=== PATIENT | male | born 1975 | race American Indian/Alaskan Native ===

== ENCOUNTER 2017-08-03 19:49 | Emergency (ER) | payer BC ==
[2017-08-03] MEDS ORDERED: NACL 0.9% 1000 ML 1,000 ML IV ONE ×2 (20:54→22:38)
--- NOTE | 2017-08-03 20:55 | Emergency Department Report ---
ED General Adult HPI - General Chief complaint: Hyperglycemia Stated complaint: HBP Time Seen by Provider: 08/03/17 20:46 Source: patient, EMS Mode of arrival: Stretcher Limitations: No Limitations - History of Present Illness Initial comments: 41-year-old male history of diabetes here with loss of insulin. Patient states he ran earlier today. His blood sugars been running high. He has had increased thirst and increased urination. Denies fevers chills nausea vomiting. Otherwise feels well. -: unknown Consistency: intermittent Worsens with: none Treatments Prior to Arrival: none, other - Related Data Home Medications Medication Instructions Recorded Confirmed Last Taken Metformin HCl [Glucophage] 1,000 mg PO BID 03/05/17 03/05/17 Unknown Previous Rx's Medication Instructions Recorded Last Taken Type Insulin Glargine,Hum.rec.anlog 20 units SC QDAY #1 insuln.pen 03/06/17 Unknown Rx [Toujeo Solostar] Allergies Allergy/AdvReac Type Severity Reaction Status Date / Time No Known Allergies Allergy Unverified 03/05/17 07:50 ED Review of Systems ROS: Stated complaint: HBP Other details as noted in HPI Comment: All other systems reviewed and negative Eyes: denies: vision change ENT: denies: ear pain, throat pain Cardiovascular: denies: chest pain, palpitations Endocrine: no symptoms reported Gastrointestinal: denies: abdominal pain, nausea, diarrhea Genitourinary: frequency. denies: urgency, dysuria Musculoskeletal: denies: back pain, joint swelling, arthralgia Skin: denies: rash, lesions Neurological: denies: headache, weakness, paresthesias Psychiatric: denies: anxiety, depression ED Past Medical Hx - Past Medical History Previous Medical History?: Yes Hx Hypertension: Yes Hx Congestive Heart Failure: No Hx Diabetes: Yes Hx Asthma: No Hx COPD: No Additional medical history: GOUT. PANCREATITIS - Family History Family history: diabetes - Social History Smoking Status: Current Every Day Smoker - Medications Home Medications: Home Medications Medication Instructions Recorded Confirmed Last Taken Type Metformin HCl [Glucophage] 1,000 mg PO BID 03/05/17 03/05/17 Unknown History Insulin Glargine,Hum.rec.anlog 20 units SC QDAY #1 insuln.pen 03/06/17 Unknown Rx [Toujeo Solostar] ED Physical Exam - General Limitations: No Limitations General appearance: alert, in no apparent distress - Head Head exam: Present: atraumatic, normocephalic - Eye Eye exam: Present: normal appearance. Absent: scleral icterus, conjunctival injection - ENT ENT exam: Present: mucous membranes moist - Respiratory Respiratory exam: Present: normal lung sounds bilaterally. Absent: respiratory distress, wheezes - Cardiovascular Cardiovascular Exam: Present: regular rate, normal rhythm, normal heart sounds. Absent: systolic murmur, diastolic murmur, rubs, gallop - GI/Abdominal GI/Abdominal exam: Present: soft, normal bowel sounds. Absent: distended, tenderness, guarding - Rectal Rectal exam: Present: deferred - Extremities Exam Extremities exam: Present: normal inspection - Back Exam Back exam: Present: normal inspection - Neurological Exam Neurological exam: Present: alert, oriented X3 - Psychiatric Psychiatric exam: Present: normal affect, normal mood - Skin Skin exam: Present: warm, dry, intact, normal color. Absent: rash ED Course Vital Signs 08/03/17 08/03/17 08/04/17 20:04 20:42 00:15 Temperature 98.0 F 98.0 F Pulse Rate 87 78 Respiratory 20 2 L 20 Rate Blood Pressure 144/102 Blood Pressure 131/86 [Right] O2 Sat by Pulse 97 97 98 Oximetry ED Medical Decision Making - Lab Data Result diagrams: 08/03/17 20:13 08/03/17 23:45 Laboratory Results - last 24 hr 08/03/17 08/03/17 08/03/17 20:08 20:13 20:13 WBC 4.4 L RBC 5.90 H Hgb 17.2 H Hct 50.9 H MCV 86 MCH 29 MCHC 34 RDW 12.9 L Plt Count 156 Lymph % (Auto) 29.6 [place] % (Auto) 6.5 Eos % (Auto) 0.1 Baso % (Auto) 0.9 Lymph # 1.3 [place] # 0.3 Eos # 0.0 Baso # 0.0 Seg Neutrophils % 62.9 Seg Neutrophils # 2.7 VBG pH Sodium 132 L Potassium 4.9 Chloride 94.6 L Carbon Dioxide 24 Anion Gap 18 BUN 15 Creatinine 0.8 Estimated GFR > 60 BUN/Creatinine Ratio 19 Glucose 638 H* POC Glucose Calcium 8.8 Urine Color Straw Urine Turbidity Clear Urine pH 6.0 Ur Specific [place] 1.029 Urine Protein <15 mg/dl Urine Glucose (UA) >=500 Urine Ketones Neg Urine Blood Neg Urine Nitrite Neg Urine Bilirubin Neg Urine Urobilinogen < 2.0 Ur Leukocyte Esterase Neg Urine WBC (Auto) 0.0 Urine RBC (Auto) < 1.0 08/03/17 08/03/17 08/03/17 20:13 20:24 23:45 WBC RBC Hgb Hct MCV MCH MCHC RDW Plt Count Lymph % (Auto) [place] % (Auto) Eos % (Auto) Baso % (Auto) Lymph # [place] # Eos # Baso # Seg Neutrophils % Seg Neutrophils # VBG pH 7.361 Sodium Potassium Chloride Carbon Dioxide Anion Gap BUN Creatinine Estimated GFR BUN/Creatinine Ratio Glucose 221 H POC Glucose > 500 H Calcium Urine Color Urine Turbidity Urine pH Ur Specific [place] Urine Protein Urine Glucose (UA) Urine Ketones Urine Blood Urine Nitrite Urine Bilirubin Urine Urobilinogen Ur Leukocyte Esterase Urine WBC (Auto) Urine RBC (Auto) - Medical Decision Making 41-year-old male with known history of diabetes has not taken his meds for approximately 24 hours for blood sugar greater than 700. Given IV fluids 2 L and 10 units of insulin and his blood sugar decreased into the 200s. Plan discharge the patient home. He is no evidence of DKA. 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 Portions of this chart were dictated with dictation software. There may be dictation errors contained within this note. Critical care attestation.: If time is entered above; I have spent that time in minutes in the direct care of this critically ill patient, excluding procedure time. ED Disposition Clinical Impression: Hyperglycemia Disposition: DC-01 TO HOME OR SELFCARE Is pt being admited?: No Condition: Stable Instructions: Diabetic Hyperglycemia (ED) Referrals: PRIMARY CARE, [Primary Care Provider] - 3-5 Days
[2017-08-03 21:09] LABS: Bilirubin,Urine NEG (Negative); Blood,Urine NEG (Negative); Ketones,Urine NEG (Negative); Leukocyte Esterase,Urine NEG (Negative); Nitrite,Urine NEG (Negative); Protein,Urine <15 mg/dL mg/dL (Negative); RBC,Urine < 1.0 /HPF (0.0-6.0); Urobilinogen,Urine < 2.0 mg/dL (<2.0)
[2017-08-03 21:24] LABS: Basophils % (Auto) 0.9 % (0.0-1.8); Eosinophils % (Auto) 0.1 % (0.0-4.3); Hematocrit 50.9 % (35.5-45.6); Hemoglobin 17.2 gm/dl (11.8-15.2); Mean Corpuscular HGB Conc 34 % (32-34); Mean Corpuscular Hemoglobin 29 pg (28-32); Mean Corpuscular Volume 86 fl (84-94); Platelet Count 156 K/mm3 (140-440); Red Cell Distribution Width 12.9 % (13.2-15.2); White Blood Count 4.4 K/mm3 (4.5-11.0)
[2017-08-03 21:35] LABS: BUN/Creatinine Ratio 19; Blood Urea Nitrogen 15 mg/dL (9-20); Calcium 8.8 mg/dL (8.4-10.2); Carbon Dioxide 24 mmol/L (22-30); Chloride 94.6 mmol/L (98-107); Sodium 132 mmol/L (137-145)
[2017-08-03 22:20] LABS: Anion Gap 18 mmol/L; Potassium 4.9 mmol/L (3.6-5.0)
[2017-08-03 22:27] LABS: Glucose 638 mg/dL (75-100)
[2017-08-04 02:25] VITALS: BP 139/88
== END 2017-08-04 02:48 | disposition home or self-care (01) ==
LOC: ED 19:49
DX: E11.65 Type 2 diabetes mellitus with hyperglycemia (principal); I10 Essential (primary) hypertension; F17.200 Nicotine dependence, unspecified, uncomplicated
CPT/HCPCS: 36415; 80048; 81001; 82805; 82947; 82962; 85025; 96361; 96374; 99284; J7030; J1815

== ENCOUNTER 2017-09-20 08:35 | Emergency (ER) | payer BC ==
[2017-09-20 09:26] VITALS: BP 131/79
[2017-09-20 09:52] LABS: Basophils % (Auto) 0.6 % (0.0-1.8); Eosinophils % (Auto) 0.4 % (0.0-4.3); Hematocrit 50.1 % (35.5-45.6); Hemoglobin 16.8 gm/dl (11.8-15.2); Mean Corpuscular HGB Conc 34 % (32-34); Mean Corpuscular Hemoglobin 30 pg (28-32); Mean Corpuscular Volume 88 fl (84-94); Platelet Count 158 K/mm3 (140-440); Red Blood Count 5.67 M/mm3 (3.65-5.03); Red Cell Distribution Width 13.3 % (13.2-15.2)
[2017-09-20 10:05] LABS: Alanine Aminotransferase 18 units/L (7-56); Albumin 4.4 g/dL (3.9-5); Albumin/Globulin Ratio 1.2 %; Alkaline Phosphatase 70 units/L (35-129); Anion Gap 14 mmol/L; BUN/Creatinine Ratio 15; Blood Urea Nitrogen 12 mg/dL (9-20); Calcium 9.2 mg/dL (8.4-10.2); Carbon Dioxide 30 mmol/L (22-30); Chloride 100.3 mmol/L (98-107); Glucose 221 mg/dL (75-100); Lipase 21 units/L (13-60); Potassium 4.4 mmol/L (3.6-5.0); Sodium 140 mmol/L (137-145)
== END 2017-09-20 09:33 | disposition left against medical advice (07) ==
LOC: ED 08:35
DX: R10.9 Unspecified abdominal pain (principal); Z53.21 Procedure and treatment not carried out due to patient leaving prior to being seen by health care provider
CPT/HCPCS: 36415; 80053; 82150; 82962; 83690; 85025

== ENCOUNTER 2021-05-10 21:10 | Observation (INO) | payer BC ==
[2021-05-10] MEDS ORDERED: ASPIRIN 325 MG TAB PO ONE (21:31)
--- NOTE | 2021-05-10 22:04 | XRay Report ---
CHEST PA AND LATERAL VIEWS INDICATION: chest pain. COMPARISON: None. FINDINGS: Support devices: None. Heart: Within normal limits. Lungs/Pleura: No acute pulmonary or pleural findings. IMPRESSION: 1. No acute findings. Signer Name: Pankaj Haley MD Signed: 05/10/2021 10:00 PM Workstation Name: [id number]
[2021-05-10 22:13] LABS: Basophils % (Auto) 0.7 % (0.0-1.8); Eosinophils % (Auto) 0.3 % (0.0-4.3); Hematocrit 55.1 % (35.5-45.6); Hemoglobin 18.6 gm/dl (11.8-15.2); Mean Corpuscular HGB Conc 34 % (32-34); Mean Corpuscular Volume 88 fl (84-94); Monocytes # (Auto) 0.4 K/mm3 (0.0-0.8); Monocytes % (Auto) 8.5 % (0.0-7.3); Platelet Count 207 K/mm3 (140-440); Red Blood Count 6.26 M/mm3 (3.65-5.03); Red Cell Distribution Width 13.5 % (13.2-15.2)
[2021-05-10 22:29] LABS: Alanine Aminotransferase 21 units/L (7-56); Albumin 4.5 g/dL (3.9-5); BUN/Creatinine Ratio 16; Blood Urea Nitrogen 18 mg/dL (9-20); Calcium 9.6 mg/dL (8.4-10.2); Hemolysis Index 50
[2021-05-11] MEDS ORDERED: ASPIRIN 325 MG TAB PO ONE (05:20)
--- NOTE | 2021-05-11 05:49 | Emergency Department Report ---
ED Chest Pain HPI - General Chief Complaint: Chest Pain Stated Complaint: CHEST PAIN,PAIN IN RT ARM,DIABETES Time Seen by Provider: 05/11/21 05:35 Source: patient Mode of arrival: Ambulatory Limitations: No Limitations - History of Present Illness Initial Comments: 45-year-old male with history of hypertension, hyperlipidemia, and diabetes mellitus type 2 on insulin presents complaining of multiple issues over the past week or so. The patient states that over this period of time he has been experiencing intermittent episodes of right sided chest pain which radiates to his right shoulder and down his right arm. In addition he is experiencing pare sthesias in the same arm. He has had very high blood sugars and very high blood pressure in the 180s systolic. He denies any associated shortness of breath, abdominal pain, nausea, focal weakness, headache, vision change, back pain, or any other complaints. He does mention that he feels slightly off balance for the past month but is not having any trouble walking and has not fallen. At this time, the patient has no symptoms including no chest pain and no right arm pain or paresthesias. He says the last episode he experienced of this pain was last night. Severity scale (0 -10): 5 - Related Data Home Medications Medication Instructions Recorded Confirmed Last Taken Metformin HCl [Glucophage] 1,000 mg PO BID 03/05/17 08/26/17 Unknown Naproxen [Naprosyn] 500 mg PO BID 08/26/17 08/26/17 Unknown Pravastatin [Pravachol] 40 mg PO DAILY 08/26/17 08/26/17 Unknown amLODIPine [Norvasc] 10 mg PO DAILY 08/26/17 08/26/17 Unknown Previous Rx's Medication Instructions Recorded Last Taken Type Insulin Glargine,Hum.rec.anlog 20 units SC QDAY #30 insuln.pen 08/26/17 Unknown Rx [Toujeo Solostar] metFORMIN [Glucophage] 1,000 mg PO BID #60 tablet 08/26/17 Unknown Rx Allergies Allergy/AdvReac Type Severity Reaction Status Date / Time No Known Allergies Allergy Verified 09/20/17 09:24 Heart Score - HEART Score History: Slightly suspicious EKG: Non-specific Age: 45-65 Risk factors: > 3 risk factors or hx of atherosclerotic disease Troponin: < normal limit HEART Score: 4 - EKG Read Time Time EKG Completed: 21:22 EKG Read Time: 21:24 ED Review of Systems ROS: Stated complaint: CHEST PAIN,PAIN IN RT ARM,DIABETES Other details as noted in HPI Constitutional: denies: chills, fever Eyes: denies: eye pain, vision change ENT: denies: throat pain, congestion Respiratory: cough (chronic). denies: shortness of breath Cardiovascular: chest pain Gastrointestinal: denies: abdominal pain, nausea, vomiting Genitourinary: denies: dysuria, frequency Musculoskeletal: denies: back pain, joint swelling Skin: denies: rash Neurological: denies: headache, weakness, numbness ED Past Medical Hx - Past Medical History Hx Hypertension: Yes Hx Congestive Heart Failure: No Hx Diabetes: Yes Hx Asthma: No Hx COPD: No Additional medical history: GOUT. PANCREATITIS - Social History Smoking Status: Current Every Day Smoker Substance Use Type: Alcohol, Marijuana - Medications Home Medications: Home Medications Medication Instructions Recorded Confirmed Last Taken Type Metformin HCl [Glucophage] 1,000 mg PO BID 03/05/17 08/26/17 Unknown History Insulin Glargine,Hum.rec.anlog 20 units SC QDAY #30 insuln.pen 08/26/17 Unknown Rx [Toujeo Solostar] Naproxen [Naprosyn] 500 mg PO BID 08/26/17 08/26/17 Unknown History Pravastatin [Pravachol] 40 mg PO DAILY 08/26/17 08/26/17 Unknown History amLODIPine [Norvasc] 10 mg PO DAILY 08/26/17 08/26/17 Unknown History metFORMIN [Glucophage] 1,000 mg PO BID #60 tablet 08/26/17 Unknown Rx ED Physical Exam - General Limitations: No Limitations - Other Other exam information: GENERAL: Well developed and well nourished. No acute distress HEENT: Normocephalic. No obvious signs of trauma. Dry mucous membranes. EYES: Extraocular movements are intact. Pupils are equal round and reactive to light bilaterally NECK: Supple. Trachea is midline. LUNGS: Nonlabored breathing. Equal chest rise bilaterally. Clear to auscultation bilaterally. HEART/CARDIOVASCULAR: Regular rate and rhythm. No murmurs or rubs. VASCULAR: 2+ peripheral pulses. Cap refill < 2 seconds ABDOMEN: Abdomen is soft and nondistended. There is no significant tenderness, guarding or rebound. SKIN: Skin is warm and dry NEURO: Patient is awake, alert, and oriented. social sciences professor II-XII grossly intact. No focal deficits. Normal motor and sensory exam throughout. Normal speech. MUSCULOSKELETAL: No obvious deformities. No significant tenderness. Normal ROM throughout. . ED Course Vital Signs 05/10/21 05/11/21 05/11/21 21:30 05:24 05:27 Temperature 98.1 F Pulse Rate 90 75 Respiratory 16 18 Rate Blood Pressure 186/108 118/79 O2 Sat by Pulse 96 96 96 Oximetry 05/11/21 05/11/21 05/11/21 05:30 05:46 06:00 Temperature Pulse Rate 73 76 83 Respiratory 15 22 16 Rate Blood Pressure 118/79 118/79 160/102 O2 Sat by Pulse 96 98 95 Oximetry 05/11/21 05/11/21 05/11/21 06:16 06:30 06:46 Temperature Pulse Rate 77 66 63 Respiratory 22 12 14 Rate Blood Pressure 160/102 153/103 153/103 O2 Sat by Pulse 96 97 98 Oximetry 05/11/21 11:52 Temperature Pulse Rate Respiratory Rate Blood Pressure 150/104 O2 Sat by Pulse Oximetry DANN score - Dann Score Age > 65: (0) No Aspirin use within the Past 7 Days: (0) No 3 or more CAD Risk Factors: (1) Yes 2 or more Angina events in past 24 hrs: (1) Yes Known CAD with more than 50% Stenosis: (0) No Elevated Cardiac Markers: (0) No ST Deviation Greater than 0.5mm: (0) No DANN Score: 2 ED Medical Decision Making - Lab Data Result diagrams: 05/10/21 21:42 05/10/21 21:42 Labs 05/10/21 05/10/21 05/10/21 21:28 21:42 21:42 WBC 4.8 RBC 6.26 H Hgb 18.6 H Hct 55.1 H MCV 88 MCH 30 MCHC 34 RDW 13.5 Plt Count 207 Lymph % (Auto) 42.0 H [place] % (Auto) 8.5 H Eos % (Auto) 0.3 Baso % (Auto) 0.7 Lymph # (Auto) 2.0 [place] # (Auto) 0.4 Eos # (Auto) 0.0 Baso # (Auto) 0.0 Seg Neutrophils % 48.5 Seg Neutrophils # 2.3 Sodium 129 L Potassium 4.5 Chloride 91.7 L Carbon Dioxide 24 Anion Gap 18 BUN 18 Creatinine 1.1 Estimated GFR > 60 BUN/Creatinine Ratio 16 Glucose 462 H POC Glucose 474 H Hemoglobin A1c Calcium 9.6 Total Bilirubin 0.50 AST 18 ALT 21 Alkaline Phosphatase 118 Troponin T < 0.010 Total Protein 7.9 Albumin 4.5 Albumin/Globulin Ratio 1.3 05/10/21 05/11/21 05/11/21 21:42 00:45 03:48 WBC RBC Hgb Hct MCV MCH MCHC RDW Plt Count Lymph % (Auto) [place] % (Auto) Eos % (Auto) Baso % (Auto) Lymph # (Auto) [place] # (Auto) Eos # (Auto) Baso # (Auto) Seg Neutrophils % Seg Neutrophils # Sodium Potassium Chloride Carbon Dioxide Anion Gap BUN Creatinine Estimated GFR BUN/Creatinine Ratio Glucose POC Glucose Hemoglobin A1c 12.6 H Calcium Total Bilirubin AST ALT Alkaline Phosphatase Troponin T < 0.010 < 0.010 Total Protein Albumin Albumin/Globulin Ratio - EKG Data -: EKG Interpreted by Ok - EKG Data 05/11/21 08:04 Normal sinus rhythm. Left axis deviation. Left anterior fascicular block. Otherwise normal intervals. Nonspecific ST elevation noted in only lead V3 without any reciprocal changes. Does not meet STEMI criteria. - Radiology Data CHEST PA AND LATERAL VIEWS INDICATION: chest pain. COMPARISON: None. FINDINGS: Support devices: None. Heart: Within normal limits. Lungs/Pleura: No acute pulmonary or pleural findings. IMPRESSION: 1. No acute findings. Signer Name: Pankaj Haley MD Signed: 05/10/2021 9:00 PM Workstation Name: [id number] - Medical Decision Making 45-year-old male with history of diabetes presenting with 1 week of right-sided chest pain radiating down his right arm with paresthesias. He also reports that his balance has been slightly off for 1 month. He is also noted to have an elevated glucose of 462. The patient's heart score is 4. On exam, he has a nonfocal neurologic exam. Lung johnson are clear bilaterally. He does have very dry mucous membranes. We will send a full set of labs and obtain chest x-ray. We will give 3 L of IV fluids and recheck blood sugar. Labs have resulted and reveal no significant leukocytosis. Hemoglobin is elevated at 18.6 consistent with hemoconcentration. Glucose is 462 and sodium is 129 consistent with pseudohyponatremia. Troponin is negative. Nonetheless, given that the patient's heart score is 4, he will be admitted to medicine for further work-up and management. I spoke with the on-call hospitalist regarding the case who accepts the patient for admission and will assume care Critical care attestation.: If time is entered above; I have spent that time in minutes in the direct care of this critically ill patient, excluding procedure time. ED Disposition Clinical Impression: Angina at rest, Hyperglycemia, Pseudohyponatremia, Dehydration Disposition: DC09 OP ADMIT IP TO THIS HOSP Is pt being admited?: Yes Condition: Stable
[2021-05-11] MEDS ORDERED: SODIUM CHLORIDE 0.9% 1000 ML 1,000 ML IV ONE ×3 (05:51→05:53)
[2021-05-11] MEDS ORDERED: LACTATED RINGERS 1,000 ML IV ONE (05:52)
--- NOTE | 2021-05-11 10:21 | Electrocardiograph Report ---
[facility] Test Date: 2021-05-10 Test Time: 21:22:09 Pat Name: DORA ZAPATA Department: Room: [facility] Gender: M Computer Repairer: ISHAAN : 1975 Requested By: ED DOC Order Number: [id number] Reading MD: Dino Gabriel Measurements Intervals Ora Rate: 85 P: 26 SC: 152 QRS: -66 QRSD: 78 T: 46 QT: 357 QTc: 424 Interpretive Statements Sinus rhythm Probable left atrial enlargement Left anterior fascicular block Probable left ventricular hypertrophy No previous ECG available for comparison Electronically Signed On 05-11-2021 10:21:07 EDT by Dino Gabriel
[2021-05-11] MEDS ORDERED: DEXTROSE 50% IN WATER (25GM) 50 ML SYRINGE IV PRN (10:25)
[2021-05-11] MEDS ORDERED: amLODIPine 10 MG TAB PO SCH (11:30)
[2021-05-11] MEDS ORDERED: ONDANSETRON 4 MG/2 ML INJ IV PRN (11:30)
[2021-05-11] MEDS ORDERED: ACETAMINOPHEN 325 MG TAB PO PRN (11:30)
[2021-05-11] MEDS ORDERED: INSULIN LISPRO 100 UNIT/ML SUB-Q PRN (11:30)
[2021-05-11] MEDS ORDERED: SODIUM CHLORIDE 0.9% 1000 ML 1,000 ML IV SCH (11:30)
[2021-05-11] MEDS ORDERED: INSULIN NPH, HUMAN 100 UNIT/1 ML SUB-Q NR (11:30)
[2021-05-11 11:53] VITALS: BP 150/104
--- NOTE | 2021-05-11 14:35 | History and Physical Report ---
History of Present Illness Date of admission: 05/11/21 08:02 Medications and Allergies Allergies Allergy/AdvReac Type Severity Reaction Status Date / Time No Known Allergies Allergy Verified 09/20/17 09:24 Home Medications Medication Instructions Recorded Confirmed Last Taken Type Metformin HCl [Glucophage] 1,000 mg PO BID 03/05/17 08/26/17 Unknown History Insulin Glargine,Hum.rec.anlog 20 units SC QDAY #30 insuln.pen 08/26/17 Unknown Rx [Toujeo Solostar] Naproxen [Naprosyn] 500 mg PO BID 08/26/17 08/26/17 Unknown History Pravastatin [Pravachol] 40 mg PO DAILY 08/26/17 08/26/17 Unknown History amLODIPine [Norvasc] 10 mg PO DAILY 08/26/17 08/26/17 Unknown History metFORMIN [Glucophage] 1,000 mg PO BID #60 tablet 08/26/17 Unknown Rx Exam - Constitutional Vitals: Temp Pulse Resp BP Pulse Ox 98.1 F 63 14 150/104 98 05/10/21 21:30 05/11/21 06:46 05/11/21 06:46 05/11/21 11:52 05/11/21 06:46 HEART Score - HEART Score EKG: Non-specific Age: 45-65 Risk factors: > 3 risk factors or hx of atherosclerotic disease Troponin: Troponin T < 0.010 ng/mL (0.00-0.029) 05/11/21 03:48 Troponin: < normal limit Results - Labs CBC & Chem 7: 05/10/21 21:42 05/10/21 21:42 Labs: Laboratory Last Values WBC 4.8 K/mm3 (4.5-11.0) 05/10/21 21:42 RBC 6.26 M/mm3 (3.65-5.03) H 05/10/21 21:42 Hgb 18.6 gm/dl (11.8-15.2) H 05/10/21 21:42 Hct 55.1 % (35.5-45.6) H 05/10/21 21:42 MCV 88 fl (84-94) 05/10/21 21:42 MCH 30 pg (28-32) 05/10/21 21:42 MCHC 34 % (32-34) 05/10/21 21:42 RDW 13.5 % (13.2-15.2) 05/10/21 21:42 Plt Count 207 K/mm3 (140-440) 05/10/21 21:42 Lymph % (Auto) 42.0 % (13.4-35.0) H 05/10/21 21:42 [place] % (Auto) 8.5 % (0.0-7.3) H 05/10/21 21:42 Eos % (Auto) 0.3 % (0.0-4.3) 05/10/21 21:42 Baso % (Auto) 0.7 % (0.0-1.8) 05/10/21 21:42 Lymph # (Auto) 2.0 K/mm3 (1.2-5.4) 05/10/21 21:42 [place] # (Auto) 0.4 K/mm3 (0.0-0.8) 05/10/21 21:42 Eos # (Auto) 0.0 K/mm3 (0.0-0.4) 05/10/21 21:42 Baso # (Auto) 0.0 K/mm3 (0.0-0.1) 05/10/21 21:42 Seg Neutrophils % 48.5 % (40.0-70.0) 05/10/21 21:42 Seg Neutrophils # 2.3 K/mm3 (1.8-7.7) 05/10/21 21:42 Sodium 129 mmol/L (137-145) L 05/10/21 21:42 Potassium 4.5 mmol/L (3.6-5.0) 05/10/21 21:42 Chloride 91.7 mmol/L (98-107) L 05/10/21 21:42 Carbon Dioxide 24 mmol/L (22-30) 05/10/21 21:42 Anion Gap 18 mmol/L 05/10/21 21:42 BUN 18 mg/dL (9-20) 05/10/21 21:42 Creatinine 1.1 mg/dL (0.8-1.3) 05/10/21 21:42 Estimated GFR > 60 ml/min 05/10/21 21:42 BUN/Creatinine Ratio 16 % 05/10/21 21:42 Glucose 462 mg/dL (75-100) H 05/10/21 21:42 POC Glucose 289 mg/dL (70-105) H 05/11/21 11:16 Hemoglobin A1c 12.6 % (4-6) H 05/10/21 21:42 Calcium 9.6 mg/dL (8.4-10.2) 05/10/21 21:42 Total Bilirubin 0.50 mg/dL (0.1-1.2) 05/10/21 21:42 AST 18 units/L (5-40) 05/10/21 21:42 ALT 21 units/L (7-56) 05/10/21 21:42 Alkaline Phosphatase 118 units/L (35-129) 05/10/21 21:42 Troponin T < 0.010 ng/mL (0.00-0.029) 05/11/21 03:48 Total Protein 7.9 g/dL (6.3-8.2) 05/10/21 21:42 Albumin 4.5 g/dL (3.9-5) 05/10/21 21:42 Albumin/Globulin Ratio 1.3 % 05/10/21 21:42
[2021-05-11] MEDS ORDERED: metFORMIN 500 MG TAB PO SCH (17:00)
== END 2021-05-11 13:32 | disposition left against medical advice (07) ==
LOC: ED 21:10 → 4A 05-11 08:02
PROVIDERS: ADMIT Internal Medicine; ATTEND Internal Medicine
DX: I20.8 Other forms of angina pectoris (principal); I10 Essential (primary) hypertension; E11.65 Type 2 diabetes mellitus with hyperglycemia; R07.89 Other chest pain; E87.1 Hypo-osmolality and hyponatremia; E86.0 Dehydration; E78.5 Hyperlipidemia, unspecified; F17.210 Nicotine dependence, cigarettes, uncomplicated; Z79.4 Long term (current) use of insulin
CPT/HCPCS: 36415; 71046; 80053; 82962; 83036; 84484; 85025; 93005; 96360; 96372; 99285; G0378; J7030; J1815

== ENCOUNTER 2022-02-25 14:47 | Emergency (ER) | payer SELFPAY ==
[2022-02-25] MEDS ORDERED: LIDOCAINE (1%) 10 MG/1 ML VIAL 20 ML MDV INFILTRATI ONE (22:03)
--- NOTE | 2022-02-25 22:08 | Emergency Department Report ---
ED Extremity Problem HPI - General Chief complaint: Extremity Problem,Nontraumatic Stated complaint: RT LEG PAIN /KNEE Time Seen by Provider: 02/25/22 21:38 Source: patient Mode of arrival: Ambulatory Limitations: No Limitations - History of Present Illness Initial comments: Patient is a 46-year-old male with history of gout presenting to ED with compla int of effusion of his right knee. Symptoms began 3 days ago. He denies any trauma. MD Complaint: joint swelling (Right knee effusion) -: days(s) (3 days ago) -: Yes arthralgia, No fever Severity scale (0 -10): 8 Quality: aching Consistency: intermittent Worsens with: other (Flexion) - Related Data Home Medications Medication Instructions Recorded Confirmed Last Taken Metformin HCl [Glucophage] 1,000 mg PO BID 03/05/17 08/26/17 Unknown Naproxen [Naprosyn] 500 mg PO BID 08/26/17 08/26/17 Unknown Pravastatin [Pravachol] 40 mg PO DAILY 08/26/17 08/26/17 Unknown amLODIPine [Norvasc] 10 mg PO DAILY 08/26/17 08/26/17 Unknown Previous Rx's Medication Instructions Recorded Last Taken Type Insulin Glargine,Hum.rec.anlog 20 units SC QDAY #30 insuln.pen 08/26/17 Unknown Rx [Toujeo Solostar] metFORMIN [Glucophage] 1,000 mg PO BID #60 tablet 08/26/17 Unknown Rx Allergies Allergy/AdvReac Type Severity Reaction Status Date / Time No Known Allergies Allergy Verified 09/20/17 09:24 ED Review of Systems ROS: Stated complaint: RT LEG PAIN /KNEE Other details as noted in HPI Constitutional: denies: chills, fever Respiratory: denies: cough, shortness of breath, wheezing Cardiovascular: denies: chest pain, palpitations Endocrine: no symptoms reported Gastrointestinal: denies: abdominal pain, nausea, diarrhea Genitourinary: denies: urgency, dysuria Musculoskeletal: as per HPI, joint swelling, arthralgia. denies: back pain Skin: denies: rash, lesions Neurological: denies: headache, weakness, paresthesias Psychiatric: denies: anxiety, depression ED Past Medical Hx - Past Medical History Hx Hypertension: Yes Hx Congestive Heart Failure: No Hx Diabetes: Yes Hx Asthma: No Hx COPD: No Additional medical history: GOUT. PANCREATITIS - Social History Smoking Status: Current Every Day Smoker Substance Use Type: Alcohol, Marijuana - Medications Home Medications: Home Medications Medication Instructions Recorded Confirmed Last Taken Type Metformin HCl [Glucophage] 1,000 mg PO BID 03/05/17 08/26/17 Unknown History Insulin Glargine,Hum.rec.anlog 20 units SC QDAY #30 insuln.pen 08/26/17 Unknown Rx [Toujeo Solostar] Naproxen [Naprosyn] 500 mg PO BID 08/26/17 08/26/17 Unknown History Pravastatin [Pravachol] 40 mg PO DAILY 08/26/17 08/26/17 Unknown History amLODIPine [Norvasc] 10 mg PO DAILY 08/26/17 08/26/17 Unknown History metFORMIN [Glucophage] 1,000 mg PO BID #60 tablet 08/26/17 Unknown Rx ED Physical Exam - General Limitations: No Limitations General appearance: alert, in no apparent distress - Head Head exam: Present: atraumatic, normocephalic - Neck Neck exam: Present: normal inspection - Respiratory Respiratory exam: Present: normal lung sounds bilaterally. Absent: respiratory distress - Cardiovascular Cardiovascular Exam: Present: regular rate, normal rhythm. Absent: systolic murmur, diastolic murmur, rubs, gallop - GI/Abdominal GI/Abdominal exam: Present: soft, normal bowel sounds - Rectal Rectal exam: Present: deferred - Extremities Exam Extremities exam: Present: joint swelling (Right knee effusion present without significant warmth, no overlying erythema. No ecchymosis.) - Neurological Exam Neurological exam: Present: alert, oriented X3, CN II-XII intact - Psychiatric Psychiatric exam: Present: normal affect, normal mood - Skin Skin exam: Present: warm, dry, intact, normal color. Absent: rash ED Course Vital Signs 02/25/22 17:00 Temperature 97.9 F Pulse Rate 94 H Respiratory 18 Rate Blood Pressure 171/117 [Right] O2 Sat by Pulse 98 Oximetry - Joint Aspiration/Injection Consent Obtained: verbal consent Time Out Performed: Yes Indications: R/O crystal arthropathy Side of Body: right Joint Aspirated: knee Ultrasound Guidance: No Skin Prep: Chlorhexidene Local Anesthesia Used: Lidocaine 1% Amount of Anesthesia Used (mls): 3 Needle Size Used: 18G Syringe Size Used: Other (30 cc) Fluid Obtained: clear Total Fluid Obtained (mls): 35 Patient Tolerated Procedure: well Complications: none ED Medical Decision Making - Medical Decision Making Right knee aspirated with return of clear synovial fluid. On fluid analysis WBC count is within normal range. Negative for crystals. Culture and Gram stain pending. Very low suspicion for septic arthritis. Patient stable for discharge home with return precautions. Critical care attestation.: If time is entered above; I have spent that time in minutes in the direct care of this critically ill patient, excluding procedure time. ED Disposition Clinical Impression: Effusion, right knee Disposition: 01 HOME / SELF CARE / HOMELESS Is pt being admited?: No Condition: Stable Instructions: Knee Effusion, [id number] Time of Disposition: 00:56
[2022-02-26 01:11] VITALS: BP 130/77
[2022-02-26 02:12] LABS: Total Cells Counted 100 /mm3
== END 2022-02-26 01:13 | disposition home or self-care (01) ==
LOC: ED 14:47
DX: M25.461 Effusion, right knee (principal); I10 Essential (primary) hypertension; E11.9 Type 2 diabetes mellitus without complications; F17.200 Nicotine dependence, unspecified, uncomplicated; F10.20 Alcohol dependence, uncomplicated; F12.90 Cannabis use, unspecified, uncomplicated
CPT/HCPCS: 85048; 87116; 89051; 99283